=== PATIENT | female | born 1955 | race American Indian/Alaskan Native ===

== ENCOUNTER 2018-01-03 07:14 | Day surgery (SDC) | payer OTHER ==
[2018-01-03 07:35] VITALS: BMI 35.4
[2018-01-03 08:00] VITALS: O2SAT 100
[2018-01-03] MEDS ORDERED: Propofol 10 mg/ml Inj (20 ML) ONE (09:13)
--- NOTE | 2018-01-03 09:13 | CP.SDSHP ---
Same Day Surgery H & P - History Proposed Procedure: screening colonoscopy Pre-Op Diagnosis: screening for colon cancer - Previous Medical/Surgical History Cardiac: Hypertension Endocrine/Metabolic: Thyroid Disease, Obesity Misc: Other (Gerd, H pylori gastritis, hiatal hernia, internal hemorrhoids) Previous Surgical History: tubal ligation - Allergies Allergies: Allergies Penicillins Allergy (Verified 01/03/18 07:46) RASH - Physical Exam Vital Signs: Vital Signs 01/03/18 07:46 Temperature 97.2 F L Pulse Rate 64 Respiratory 16 Rate Blood Pressure 163/80 H O2 Sat by Pulse 100 Oximetry Mental Status: Alert & Oriented x3 Neuro: WNL Heart: WNL Lungs: WNL GI: WNL - Impression Impression: screening for colon cancer Pt. Evaluated Today:Candidate for Anesthesia & Procedure: Yes - Date & Time Date: 01/03/18 Time: 09:13 Short Stay Discharge - Short Stay Discharge Admitting Diagnosis/Reason for Visit: ENCOUNTER FOR SCREENING FOR MALIGNANT NEOPLASM OF Disposition: HOME/ ROUTINE
[2018-01-03] MEDS ORDERED: Lactated Ringer's 1,000 ML IV ONE (09:20)
[2018-01-03 09:53] VITALS: TEMP 96.9
[2018-01-03 10:36] VITALS: PULSE 53
[2018-01-03 10:38] VITALS: BP 152/84; RESP 18
== END 2018-01-03 10:36 | disposition home or self-care (01) ==
LOC: C.ENDO 07:14
PROVIDERS: ATTEND Internal Medicine Gastroenterology
DX: Z12.11 Encounter for screening for malignant neoplasm of colon (principal); K64.8 Other hemorrhoids; I10 Essential (primary) hypertension; K21.9 Gastro-esophageal reflux disease without esophagitis; K44.9 Diaphragmatic hernia without obstruction or gangrene; E66.9 Obesity, unspecified; Z88.0 Allergy status to penicillin
CPT/HCPCS: 45378; J2001; J2704; J7120